=== PATIENT | male | born 1960 | race Caucasian/White ===

== ENCOUNTER 2024-09-05 11:00 | Outpatient (CLI) | payer OTHER ==
[2024-09-05 11:58] LABS: Hematocrit 40.1 % (38.8-50.0); Hemoglobin 13.6 g/dL (13.5-17.5); Mean Corpuscular HGB CONC 33.9 g/dL (32.0-36.0); Mean Corpuscular Hemoglobin 31.3 pg (27.0-33.0); Mean Corpuscular Volume 92.2 fL (81.2-95.1); Mean Platelet Volume 10.3 fL (7.4-10.4); Platelet Count 213 10x3/uL (150-450); RBC Distribution Width 12.1 % (11.5-14.5); Red Blood Cell (RBC) Count 4.35 10x6/uL (4.32-5.72); White Blood Cell (WBC) Count 7.7 10x3/uL (3.5-10.5)
[2024-09-05 12:23] LABS: Anion Gap 15 mmol/L (10-20); BUN (Urea Nitrogen) 25 mg/dL (8.4-25.7); Calc. Creatinine Clearance 0 mL/min (70-130); Carbon Dioxide 26 mmol/L (23-31); Chloride 100 mmol/L (98-107); Estimated GFR 46; Glucose 230 mg/dL (80-115); Potassium 4.8 mmol/L (3.5-5.1); Sodium 136 mmol/L (136-145)
== END 2024-09-05 11:01 | disposition home or self-care (01) ==
LOC: CSHLAB 11:00
PROVIDERS: ATTEND Orthopaedic Surgery
DX: Z01.818 Encounter for other preprocedural examination (principal); S83.242A Other tear of medial meniscus, current injury, left knee, initial encounter
CPT/HCPCS: 80048; 85027; 93005; 93010

== ENCOUNTER 2024-09-09 10:03 | Day surgery (SDC) | payer OTHER ==
[2024-09-05 11:33] VITALS: BMI 43.8
[2024-09-09] MEDS ORDERED: Bupivacaine HCl 0.5%/Epinephrine 1:200,000/PF 30 ml Vial ONE (12:05)
[2024-09-09] MEDS ORDERED: PROPOFOL 20 ML ONE ×2 (12:16→13:13)
[2024-09-09] MEDS ORDERED: fentaNYL 50 mcg/mL 1 mL Vial ONE ×3 (12:16→14:01)
[2024-09-09] MEDS ORDERED: Lidocaine 1% PF 5 ML VIAL ONE (12:16)
[2024-09-09] MEDS ORDERED: Ondansetron PF 4 MG/2 ML Vial ONE (12:16)
[2024-09-09] MEDS ORDERED: Midazolam HCl 2 mg/2 ml Vial ONE (12:16)
[2024-09-09] MEDS ORDERED: Ketorolac Tromethamine 30 MG (1 mL) VIAL ONE (12:16)
[2024-09-09] MEDS ORDERED: Dexamethasone 20 MG/5 ML VIAL ONE (12:16)
[2024-09-09] MEDS ORDERED: CEFAZOLIN 2 GM VIAL ONE (12:28)
[2024-09-09] MEDS ORDERED: Glycopyrrolate 0.2 MG/ML 5 ML SYRINGE ONE (12:33)
[2024-09-09] MEDS ORDERED: Dexamethasone 4 mg/ml Vial ONE (12:53)
[2024-09-09] MEDS ORDERED: HYDROcodone/Acetaminophen 5/325 mg Tablet ONE (14:23)
== END 2024-09-09 15:10 | disposition home or self-care (01) ==
LOC: CSHSDC 10:03
PROVIDERS: ATTEND Orthopaedic Surgery
PROC: 0SBD4ZZ Excision of Left Knee Joint, Percutaneous Endoscopic Approach (ICD-10-PCS; principal; 2024-09-09)
DX: S83.232A Complex tear of medial meniscus, current injury, left knee, initial encounter (principal); S83.412A Sprain of medial collateral ligament of left knee, initial encounter; I10 Essential (primary) hypertension; E11.9 Type 2 diabetes mellitus without complications; G47.33 Obstructive sleep apnea (adult) (pediatric); Z79.84 Long term (current) use of oral hypoglycemic drugs; Z79.82 Long term (current) use of aspirin; Z79.899 Other long term (current) drug therapy; X50.1XXA Overexertion from prolonged static or awkward postures, initial encounter
CPT/HCPCS: 36416; J1100; J1885; J2250; J2405; J2704; J3010